=== PATIENT | male | born 2000 | race Caucasian/White ===

== ENCOUNTER 2021-12-12 11:25 | Emergency (ER) | payer BC ==
[~2021-12-12] VITALS: Ht 180.3 cm; Wt 70.5 kg
[2021-12-12 12:05] VITALS: TEMP 98.6
[2021-12-12 12:22] LABS: COLLECTION METHOD CLEAN CATCH
[2021-12-12 12:31] LABS: MUCOUS Present (NOT PRESENT); PH 7 (5-8); SQUAMOUS EPITHELIAL None Seen /hpf (0-10); URINE APPEARANCE Hazy (CLEAR/HAZY); URINE BACTERIA Rare /hpf (NONE SEEN); URINE BILIRUBIN Negative (NEGATIVE); URINE BLOOD 1+ (NEGATIVE); URINE COLOR Yellow (YELLOW); URINE GLUCOSE Negative (NEGATIVE); URINE KETONE Trace (NEGATIVE); URINE LEUKOCYTE ESTERASE Negative (NEGATIVE); URINE NITRATE Negative (NEGATIVE); URINE PROTEIN(semi-quant) 1+ (NEGATIVE); URINE UROBILINOGEN Negative (NEGATIVE)
[2021-12-12 14:18] LABS: BASO % 0.2 % (0.0-2.0); GRAN # 10.9 K/mm3 (1.4-6.5); HEMATOCRIT 46.9 % (42.0-52.0); HEMOGLOBIN 16.4 g/dl (13.5-18.0); LYMPH # 0.5 K/mm3 (1.2-3.4); LYMPH % 4.4 % (20.0-51.0); MEAN CELL VOLUME 83 fl (80.0-100.0); MEAN CORPUSCULAR HEMOGLOBIN 29 pg (27-31); MEAN CORPUSCULAR HGB CONC 35 g/dl (33.0-37.0); MEAN PLATELET VOLUME 10.3 fl (7.4-10.4); MONO # 0.7 K/mm3 (0.1-0.6); PLATELET COUNT 232 K/mm3 (130-400); RED BLOOD COUNT 5.64 M/mm3 (4.20-5.60)
[2021-12-12 14:33] LABS: ALBUMIN 5.3 gm/dL (3.5-5.0); BILIRUBIN,TOTAL 0.9 mg/dL (0.2-1.2); C-REACTIVE PROTEIN 0.14 mg/dL (0.00-0.50); CALCIUM 9.9 mg/dL (8.4-10.2); CREATININE, serum 1.2 mg/dL (0.72-1.25); POTASSIUM 4.1 mmol/L (3.5-4.5); TOTAL PROTEIN 8.1 gm/dL (6.2-8.1)
[2021-12-12] MEDS ORDERED: ZOFRAN ODT4 MG PO ×2 (16:36→16:59)
[2021-12-12] MEDS ORDERED: PERCOCET 325 MG1 TA2 PO ×2 (16:36→16:59)
[2021-12-12 17:05] VITALS: BP 120/61; PULSE 80
== END 2021-12-12 17:10 | disposition home or self-care (01) ==
LOC: COL.ER 11:25
PROVIDERS: Nurse Practitioner; Personal Emergency Response Attendant
DX: Q62.39 Other obstructive defects of renal pelvis and ureter (principal)
CPT/HCPCS: J1885; J2405; J7030; Q9967

== ENCOUNTER → 2021-12-20 | Outpatient (CLI) | payer BC ==
[~2021-12-20] MED LIST: PERCOCET 325 MG1 TA2 PO; ZOFRAN ODT4 MG PO
== END ==
LOC: COL.RAD 07:23
DX: N13.5 Crossing vessel and stricture of ureter without hydronephrosis (principal)
CPT/HCPCS: A9562; J1940

== ENCOUNTER 2022-01-04 05:28 | Day surgery (SDC) | payer BC ==
[2022-01-04] VITALS (10 sets, daily range): BP systolic 113–138; BP diastolic 71–92; PULSE 77–87; TEMP 98–98.6
[~2022-01-04] VITALS: Ht 180.3 cm; Wt 68.3 kg
[2022-01-04] MEDS ORDERED: PYRIDIUM 100MG100 MG PO (10:21)
[2022-01-04] MEDS ORDERED: NORCO 325 MG-51 TAB PO (10:21)
[2022-01-04] MEDS ORDERED: COLACE 100100 MG/CAP PO (10:21)
--- NOTE | 2022-01-04 11:13 | NUR ---
Pt recently arrived to the floor from [facility]. Pt is drowsy, but does wake easily when spoken to. Pt does have kumar to independent drainage. Lap sites to abd without drainage, drain to bulb suction. Pt does have clear liquid diet. Lung sounds clear and heart rate regular. SCDs on bilaterally. IV to left hand with fluids infusing.
--- NOTE | 2022-01-04 11:39 | NUR ---
Pts mother at bedside. Woke pt to take his tylenol. PT did wake easily with no complaints. Sat pt up using bed, pt complained of feeling dizzy and then nauseated. After a few minutes, the nausea did pass. Pt denies any needs.
--- NOTE | 2022-01-04 16:00 | NUR ---
Pt has progessed well this afternoon. Pt not feeling as dizzy, but nausea does come and go. Pt has been up and ambulated to the door and back. Pt started to feel dizzy during this. Pt then sat on the side of the bed for about an hour. Mother has been present this afternoon. He is tolerating some clear liquids.
[2022-01-05 00:47] VITALS: BP 126/68; PULSE 73; TEMP 98.7
[2022-01-05 04:00] VITALS: BP 121/71; PULSE 71; TEMP 98.3
[2022-01-05 07:21] VITALS: BP 124/80; PULSE 75; TEMP 98
--- NOTE | 2022-01-05 08:19 | NUR ---
Pt resting in bed during assessment. Pt states that pain is tolerable at this time as well as with movement. He is tolerating food/fluids with no nausea/ vomiting. Pt has not voided yet, educated to try after he eats breakfast.
--- NOTE | 2022-01-05 10:58 | NUR ---
Pt continues to do well with tolerable pain complaints. Pt getting up independently in the room. He is voiding without difficulty. No increase in drain output
--- NOTE | 2022-01-05 11:33 | NUR ---
can intake worker met with patient to complete intake. Possible discharge planed for later today. Patient's mother Teagan ([phone]) present at bedside. Patient is independent with his ADL's and does not utilize any DME to assist with mobility. Patient has no home oxygen needs. PCP is Dr. Wilfred Montague and he utilizes [facility] for medications. Patient is currently a student at [employer]. He has notified his professors of this hospitalization. Offered to call student Ayudarum for him to which he verbalizes his wishes for me to do so. Patient is planning on returning to his mothers house for the weekend before returning for classes on Saturday. Discharge plan: Home with mother
--- NOTE | 2022-01-05 11:48 | NUR ---
First visit from the staff mechanical engineer. No needs right now.
[2022-01-05 11:52] VITALS: BP 124/78; PULSE 83; TEMP 98.3
--- NOTE | 2022-01-05 13:30 | NUR ---
Went to educate and remove drain. Pt then had complaints of pain in his penis. Stated that he could not even move his legs without it hurting. Suggested that he try to void. Stepped out of room and pt stated that he feels like he needed to, but couldn't because of the pain. Pt attempted to void laying down due to the pain. Encouraged him to get up to try voiding. He was able to get in to the bathroom and was able to void, output was pink tinged. Pt stated the pain in his penis has subsided, but now has complaints of pain on his right side. Attempted to notify Matt NARANJO with no answer, will try again
--- NOTE | 2022-01-05 14:00 | NUR ---
Was able to reach Dr Hammer. Updated on pt condition. Pt continues to be in severe pain and is doubled over. New orders received.
--- NOTE | 2022-01-05 14:28 | NUR ---
Pt back in bed but is not able to relax due to the pain. Pts fists are clinched and very restless. PRN IV pain medication given, as well as new medicaiton order. Pts mother at bedside
[2022-01-05 15:16] VITALS: BP 127/78; PULSE 99; TEMP 98
--- NOTE | 2022-01-05 15:48 | NUR ---
Pt reports that he is feeling a little bit better, but still having some pain. Continue to encouarge pt to drink plenty of water and to try voiding a couple of hours. Pts mother continues to be at bedside
[2022-01-05 20:00] VITALS: BP 124/71; PULSE 81; TEMP 98.8
--- NOTE | 2022-01-05 22:23 | NUR ---
Patient assessed around 2200. Alert and oriented, and able to make needs known. Reports pain has gotten better. Recieved scheduled medications per orders. Peripheral INT to left hand. Denies SOB and dyspnea. LS CTA. HRR. BSAx4. Reports no BM, but is passing gas. Continues to have discomfort with urination, but states it is getting better. Urine blood tinged/orange. No edema. LUI drain to LLQ with red tinged output. Voices no questions, needs, or concerns at this time. Ambulated in hallway. In bed with call light within reach.
[2022-01-06 01:06] VITALS: BP 116/67; PULSE 71; TEMP 98.7
[2022-01-06 03:49] VITALS: BP 114/70; PULSE 66; TEMP 98
--- NOTE | 2022-01-06 05:33 | NUR ---
Patient has only recieved scheduled pain medications this shift. Reports pain is doing much better tonight compared to yesterday. Voices no questions, needs, or concerns at this time. In bed with call light within reach.
--- NOTE | 2022-01-06 07:40 | NUR ---
Pt resting with eyes closed, even non labored breathing. Pt mom reported that he had a good night, severe pain stopping around 1800 yesterday.
[2022-01-06 07:44] VITALS: BP 117/70; PULSE 70; TEMP 98.2
--- NOTE | 2022-01-06 09:00 | NUR ---
Dr Hammer in to see pt, new orders entered. Awaiting xray prior to pulling drain. Pt overall feeling much better. No needs at this time, call light within reach, mother continues to be present
--- NOTE | 2022-01-06 10:42 | NUR ---
Pt recently ambulated in the halls. He did well, but did have increase in pain to his abd. Pt now resting in bed. Continue to await results of KUB. Pt reports that he does not very hungry this am and that he feels like he needs to have a bowel movement. Encouraged activity and IS. Discussed him getting a shower today. Will await the results of xray
--- NOTE | 2022-01-06 12:07 | NUR ---
Discussed xray with Dr Hammer. Instructed to remove the drain and okay for pt to discharge. Drain removed, pt tolerated well. Gauze and tegaderm applied. Reminded and encouraged pt to ambulate often to help alleviate gas and gas pains. INT removed from left hand.
[2022-01-06 12:30] VITALS: BP 115/72; PULSE 77; TEMP 97.9
--- NOTE | 2022-01-06 13:30 | NUR ---
Reviewed discharge instructions with pt and his mother to include prescriptions and follow up appointment. Again reminded pt to make sure he is walking every 1-2 hours. Pt verbalized understanding. Pt is waiting on his lunch at this time
--- NOTE | 2022-01-06 15:10 | NUR ---
Pt has eaten his lunch and is ready for discharge. Pt escorted out at this time
== END 2022-01-06 15:10 | disposition home or self-care (01) ==
LOC: SDCO 05:28 → SURG 07:30 → SDCO 07:30 → EDSTATUS 07:30 → SURG 10:50 → SDCO 01-06 15:10
DX: N13.5 Crossing vessel and stricture of ureter without hydronephrosis (principal); Q62.11 Congenital occlusion of ureteropelvic junction
CPT/HCPCS: OP; A4314; A9284; C1769; C2617; J0690; J1100; J1650; J1885; J2250; J2270; J2405; J2704; J3010; J7120